=== PATIENT | male | born 1995 | race Caucasian/White ===

== ENCOUNTER 2018-07-24 23:54 | Emergency (ER) | payer MEDICAID ==
[~2018-07-24] VITALS: Ht 165.1 cm; Wt 54.4 kg
[2018-07-24 23:58] VITALS: BP_SYST 122
[2018-07-25] MEDS ORDERED: BUDESONIDE 0.5 MG/2 ML AMPUL.NEB ONE (12:03)
== END 2018-07-25 00:17 | disposition home or self-care (01) ==
LOC: SED 23:54
DX: K59.00 Constipation, unspecified (principal)
CPT/HCPCS: 99283; J7626

== ENCOUNTER 2018-08-07 20:00 | Emergency (ER) | payer MEDICAID ==
[~2018-08-07] VITALS: Ht 165.1 cm; Wt 54.4 kg
[2018-08-07 20:15] VITALS: BP_SYST 155
[2018-08-07] MEDS ORDERED: CETI-101 PO (20:56)
[2018-08-07] MEDS ORDERED: SERT-131 PO (20:56)
[2018-08-07] MEDS ORDERED: GUAI100S14 PO (20:56)
[2018-08-07] MEDS ORDERED: MULT-1117 PO (20:56)
[2018-08-07] MEDS ORDERED: ACET325C3 PO (20:56)
[2018-08-07] MEDS ORDERED: DOXY100T2 PO (20:56)
[2018-08-07] MEDS ORDERED: FURO-150 PO (20:56)
[2018-08-07] MEDS ORDERED: SIMV10TA6 PO (20:56)
[2018-08-07] MEDS ORDERED: MEMA10TA PO (20:56)
[2018-08-07] MEDS ORDERED: IPRA0.2S53 IH (20:56)
[2018-08-07] MEDS ORDERED: WARF3TAB2 PO (20:56)
[2018-08-07] MEDS ORDERED: FERR140T2 PO (20:56)
[2018-08-07] MEDS ORDERED: LOSA25TA3 PO (20:56)
[2018-08-07] MEDS ORDERED: ESOM40CA53 PO (20:56)
[2018-08-07] MEDS ORDERED: CARV6.2554 PO (20:56)
[2018-08-07] MEDS ORDERED: ALPR0.5T PO (20:56)
[2018-08-07] MEDS ORDERED: HYDR-3917 PO (20:56)
[2018-08-07] MEDS ORDERED: NACL 0.9% 1,000 ML IV ONE (21:15)
[2018-08-07 21:50] LABS: HEMATOCRIT 38.8 % (36-54); HEMOGLOBIN 13.1 g/dL (14.0-18.0); MEAN CORPUSCULAR HEMOGLOBIN 29 pg (27-31); MEAN CORPUSCULAR HGB CONC 34 % (32-36); MEAN CORPUSCULAR VOLUME 85 fL (79.0-98.0); PLATELET COUNT (AUTO) 199 K/uL (130-430); RED BLOOD CELL COUNT(AUTO) 4.54 MIL/uL (4.2-6.2); RED CELL DISTRIBUTION WIDTH 13.4 % (9.0-15.0); WHITE BLOOD COUNT (AUTO) 6.4 K/uL (4.8-10.8)
[2018-08-07 21:51] LABS: BASOPHILS % (AUTO) 0.8 % (0.0-2.0); EOSINOPHILS # (AUTO) 0.1 K/uL (0.0-0.4); EOSINOPHILS % (AUTO) 1.9 % (0.0-4.0); LYMPHOCYTES # (AUTO) 1.7 K/uL (1.0-5.5); LYMPHOCYTES % (AUTO) 26.7 % (20.5-51.5); MONOCYTES # (AUTO) 0.6 K/uL (0.0-1.0); MONOCYTES % (AUTO) 8.7 % (1.7-9.3); NEUTROPHILS # (AUTO) 3.9 K/uL (1.8-7.7); NEUTROPHILS % (AUTO) 61.9 % (40.0-70.0)
[2018-08-07 21:54] LABS: CALCIUM 8.1 mg/dL (8.4-11.0); CREATININE 0.84 mg/dL (0.55-1.30); POTASSIUM 3.3 mmol/L (3.5-5.1)
[2018-08-07 21:58] LABS: ALBUMIN 3.4 g/dL (3.4-4.8); TOTAL BILIRUBIN 0.5 mg/dL (0.0-1.0)
[2018-08-07 23:48] VITALS: BP_SYST 148
== END 2018-08-07 23:48 | disposition home or self-care (01) ==
LOC: SED 20:00
DX: K56.41 Fecal impaction (principal); R03.0 Elevated blood-pressure reading, without diagnosis of hypertension; Z79.899 Other long term (current) drug therapy
CPT/HCPCS: 36415; 74018; 80053; 83690; 85025; 96360; 99284; J7030

== ENCOUNTER 2018-10-01 21:11 | Emergency (ER) | payer MEDICAID ==
[~2018-10-01] VITALS: Ht 170.2 cm; Wt 54.4 kg
[~2018-10-01 21:11] MED LIST: ACET325C3 PO; ALPR0.5T PO; CARV6.2554 PO; CETI-101 PO; DOXY100T2 PO; ESOM40CA53 PO; FERR140T2 PO; FURO-150 PO; GUAI100S14 PO; HYDR-3917 PO; IPRA0.2S53 IH; LOSA25TA3 PO; MEMA10TA PO; MULT-1117 PO; SERT-131 PO; SIMV10TA6 PO; WARF3TAB2 PO
[2018-10-01 21:23] VITALS: BP_SYST 105
[2018-10-01] MEDS ORDERED: NACL 0.9% 1,000 ML IV ONE (21:40)
[2018-10-01] MEDS ORDERED: ONDANSETRON HCL 4 MG/2 ML VIAL IVP ONE (21:45)
[2018-10-01 22:33] LABS: BILIRUBIN,URINE NEGATIVE (NEGATIVE); BLOOD, URINE 2+ (NEGATIVE); CLARITY/URINE CLEAR (CLEAR); COLOR,URINE YELLOW (YELLOW); GLUCOSE,URINE NEGATIVE (NEGATIVE); KETONES,URINE NEGATIVE (NEGATIVE); LEUKOCYTE ESTERASE ,URINE NEGATIVE (NEGATIVE); NITRITE, URINE NEGATIVE (NEGATIVE); PROTEIN URINE NEGATIVE (NEGATIVE)
[2018-10-01 22:41] LABS: CALCIUM 8.5 mg/dL (8.4-11.0); CREATININE 0.98 mg/dL (0.55-1.30); POTASSIUM 3.4 mmol/L (3.5-5.1)
[2018-10-01 22:42] LABS: BACTERIA,URINE FEW /HPF (None Seen); BASOPHILS % (AUTO) 0.3 % (0.0-2.0); EOSINOPHILS % (AUTO) 0.3 % (0.0-4.0); HEMATOCRIT 45.8 % (36-54); HEMOGLOBIN 15.5 g/dL (14.0-18.0); LYMPHOCYTES # (AUTO) 1.6 K/uL (1.0-5.5); MEAN CORPUSCULAR HEMOGLOBIN 29 pg (27-31); MEAN CORPUSCULAR HGB CONC 34 % (32-36); MEAN CORPUSCULAR VOLUME 87 fL (79.0-98.0); MONOCYTES # (AUTO) 0.8 K/uL (0.0-1.0); NEUTROPHILS # (AUTO) 11.1 K/uL (1.8-7.7); NEUTROPHILS % (AUTO) 81.4 % (40.0-70.0); PLATELET COUNT (AUTO) 232 K/uL (130-430); RED BLOOD CELL COUNT(AUTO) 5.28 MIL/uL (4.2-6.2); RED CELL DISTRIBUTION WIDTH 13.6 % (9.0-15.0); WBC,URINE 0-3 /HPF (0-3); WHITE BLOOD COUNT (AUTO) 13.6 K/uL (4.8-10.8)
[2018-10-01] MEDS ORDERED: MAGNESIUM CITRATE 300 ML ORAL SOLUTION PO ONE (22:45)
[2018-10-01] MEDS ORDERED: MINERAL OIL 133 ML ENEMA RC ONE (22:45)
[2018-10-01 22:47] LABS: ALBUMIN 4.5 g/dL (3.4-4.8); TOTAL BILIRUBIN 0.6 mg/dL (0.0-1.0)
[2018-10-02] MEDS ORDERED: NA PHOS,M-B/NA PHOS,DI-BA 118 ML (FLEET ENEMA) RC ONE (01:15)
[2018-10-02] MEDS ORDERED: ONDANSETRON HCL 4 MG/2 ML VIAL IVP ONE (01:15)
[2018-10-02 01:59] VITALS: BP_SYST 104
== END 2018-10-02 01:59 | disposition home or self-care (01) ==
LOC: SED 21:11
DX: K59.00 Constipation, unspecified (principal)
CPT/HCPCS: 36415; 74018; 80053; 81000; 85025; 96361; 96374; 96376; 99284; J2405 ×2; J7030

== ENCOUNTER 2021-06-01 18:35 | Emergency (ER) | payer MEDICAID ==
[~2021-06-01] VITALS: Ht 165.1 cm; Wt 54.4 kg
[2021-06-01 18:35] VITALS: BP_SYST 106
[~2021-06-01 18:35] MED LIST changes: -ACET325C3 PO; +ACET325C5 PO; -CETI-101 PO; +CETI-80 PO; -SIMV10TA6 PO; +SIMV10TA97 PO
--- NOTE | 2021-06-01 18:37 | NUR ---
Patient triaged and placed in waiting room. VSS and patient appears in no acute distress at this time. Accompanied by SELF, awaiting available bed, and MD notified of need for MSE.
[2021-06-01 19:44] LABS: BASOPHILS # (AUTO) 0.1 K/uL (0.0-0.2); BASOPHILS % (AUTO) 0.6 % (0.0-2.0); EOSINOPHILS % (AUTO) 0.2 % (0.0-4.0); HEMATOCRIT 42.7 % (36-54); HEMOGLOBIN 14.6 g/dL (14.0-18.0); LYMPHOCYTES # (AUTO) 1.8 K/uL (1.0-5.5); LYMPHOCYTES % (AUTO) 22.6 % (20.5-51.5); MEAN CORPUSCULAR HEMOGLOBIN 29 pg (27-31); MEAN CORPUSCULAR HGB CONC 34 % (32-36); MEAN CORPUSCULAR VOLUME 84 fL (79.0-98.0); MONOCYTES # (AUTO) 0.7 K/uL (0.0-1.0); MONOCYTES % (AUTO) 8.1 % (1.7-9.3); NEUTROPHILS # (AUTO) 5.5 K/uL (1.8-7.7); NEUTROPHILS % (AUTO) 68.5 % (40.0-70.0); PLATELET COUNT (AUTO) 213 K/uL (130-430); RED BLOOD CELL COUNT(AUTO) 5.06 MIL/uL (4.2-6.2); RED CELL DISTRIBUTION WIDTH 13.1 % (9.0-15.0); WHITE BLOOD COUNT (AUTO) 8.1 K/uL (4.8-10.8)
[2021-06-01 19:59] LABS: CALCIUM 8.9 mg/dL (8.4-11.0); CREATININE 0.95 mg/dL (0.55-1.30)
[2021-06-01 20:04] LABS: ALBUMIN 4.7 g/dL (3.4-4.8); TOTAL BILIRUBIN 0.7 mg/dL (0.0-1.0)
--- NOTE | 2021-06-02 00:03 | NUR ---
Patient to ER bed 2 to gown for evaluation. Side rails up.
--- NOTE | 2021-06-02 00:04 | NUR ---
Patient BIB by family from home. C/O left chest pain x today. Per patient reported, had left chest pain since 1400 PM today, No Hx Heart problems. A/O,X4, left chest pain, pain rate 3/10, place patient on pharmacy consultant and pulse ox.
--- NOTE | 2021-06-02 00:21 | NUR ---
ER Dr. Fernandez at bedside examining patient.
--- NOTE | 2021-06-02 00:28 | NUR ---
Blood for labwork drawn from early morning. Patient tolerated well.
[2021-06-02] MEDS: IBUPROFEN 600 MG TABLET PO ONE (01:25)
[2021-06-02] MEDS ORDERED: IBUP-1969 PO (02:46)
[2021-06-02 02:55] VITALS: BP_SYST 106
--- NOTE | 2021-06-02 02:55 | NUR ---
Patient given written and verbal discharge instructions and verbalizes understanding. ER MD discussed with patient the results and treatment provided. Patient in stable condition. ID arm band removed. Rx of Ibuprofen given. Patient educated on pain management and to follow up with PMD. Pain Scale 1/10. Opportunity for questions provided and answered. Medication side effect fact sheet provided.
== END 2021-06-02 02:55 | disposition home or self-care (01) ==
LOC: SED 18:35
DX: R07.89 Other chest pain (principal); Z79.899 Other long term (current) drug therapy
CPT/HCPCS: 36415; 71046-TC; 80053; 84484; 85025; 93005; 99285

== ENCOUNTER 2021-10-20 10:53 | Emergency (ER) | payer MEDICAID, OTHER ==
[~2021-10-20] VITALS: Ht 165.1 cm; Wt 49.9 kg
[2021-10-20 10:53] VITALS: BP_SYST 113
[~2021-10-20 10:53] MED LIST changes: +IBUP-1969 PO
--- NOTE | 2021-10-20 10:53 | NUR ---
Patient triaged and placed in waiting room. VSS and patient appears in no acute distress at this time. Accompanied by self, awaiting available bed, and MD notified of need for MSE.
--- NOTE | 2021-10-20 12:36 | NUR ---
Patient to ER bed 5 to gown for evaluation. Side rails up. Report given to Makenna.
--- NOTE | 2021-10-20 12:43 | NUR ---
ER at bedside examining patient.
[2021-10-20] MEDS ORDERED: FLEETMO RC (12:48)
[2021-10-20] MEDS ORDERED: PEG4000S4 PO (12:48)
[2021-10-20] MEDS ORDERED: TRAM50TA PO (12:48)
[2021-10-20 13:12] VITALS: BP_SYST 136
--- NOTE | 2021-10-20 13:12 | NUR ---
Patient given written and verbal discharge instructions and verbalizes understanding. ER MD discussed with patient the results and treatment provided. Patient in stable condition. ID arm band removed. Rx of Enema, Tramadol, and Glycol given. Patient educated on pain management and to follow up with PMD. Pain Scale . Opportunity for questions provided and answered. Medication side effect fact sheet provided.
== END 2021-10-20 13:12 | disposition home or self-care (01) ==
LOC: SED 10:53
DX: K59.00 Constipation, unspecified (principal)
CPT/HCPCS: 74018; 99283

== ENCOUNTER 2023-04-01 17:26 | Emergency (ER) | payer OTHER, MEDICAID ==
[~2023-04-01] VITALS: Ht 165.1 cm; Wt 74.8 kg
[2023-04-01 17:26] VITALS: BP_SYST 138; PULSE 89; RESP 17; TEMP 97; O2SAT 99
[~2023-04-01 17:26] MED LIST changes: +FLEETMO RC; +LOSA-412 PO; -LOSA25TA3 PO; +PEG4000S4 PO; +TRAM50TA PO
[2023-04-01] MEDS ORDERED: KETOROLAC TROMETHAMINE 15 MG VIAL IM ONE (17:45)
[2023-04-01] MEDS ORDERED: IBUP-1968 PO (19:16)
[2023-04-01 19:54] VITALS: BP_SYST 110; PULSE 74; RESP 18; TEMP 98.1; O2SAT 96
== END 2023-04-01 19:54 | disposition home or self-care (01) ==
LOC: SED 17:26
DX: S83.92XA Sprain of unspecified site of left knee, initial encounter (principal); M13.862 Other specified arthritis, left knee; M25.462 Effusion, left knee; Z79.899 Other long term (current) drug therapy; X50.0XXA Overexertion from strenuous movement or load, initial encounter; Y93.89 Activity, other specified; Y92.89 Other specified places as the place of occurrence of the external cause; Y99.8 Other external cause status
CPT/HCPCS: 99283; 73564; 96372; J1885